=== PATIENT | female | born 1950 | race Caucasian/White ===

== ENCOUNTER → 2016-12-23 | Outpatient (CLI) | payer MEDICARE, BC ==
[~2016-12-23] MED LIST: ACETAMINOPHEN PO; ADVAIR 2501 DISK W/D PO; ADVAIR 500-501 EACH IH; ADVAIR 5001 DISK W/2 INH; ALBUTEROL0.83 MG/ML IH; ALBUTEROL17 GM INH; ALPRAZOLAM PO; AMOXIL500 M2 PO; BACTRIM DS TABL1 TAB PO; CEFTIN PO; CHANTIX; CLARITIN10 M3 PO; CLARITIN10 MG PO; DOCUSATE SODIU100 MG PO; GABAPENTIN400 M2 PO; HYDROCODON-ACE1 EAC1 PO; INCRUSE ELLI62.5 MCG INH; LEVAQUIN PO; LEVAQUIN750 MG PO; LORTAB 7.5-3251 EACH PO; MOOD STABILIZER; MUCINEX DM1 TAB.SR . PO; NEURONTIN PO; OMNICEF300 MG PO; PREDNISONE PO; PREDNISONE10 MG PO; PROTONIX PO; RITE-AID PHARMACY; SPIRIVA18 MCG INH; SPIRIVA18 MCG PO; TESSALON200 MG PO; TUSSIONEX PENN473 ML PO; TYLENOL325 M1 PO; VENTOLIN5 MG/ML INH; VIBRAMYCIN100 M1 PO; WELLBUTRIN PO; ZITHROMAX PO; ZITHROMAX500 MG PO; ZYRTEC10 M1 PO
--- NOTE | ~2016-12-23 | CT57 ---
[facility] A Service of [facility] & [facility] RADIOLOGY TEXT RESULTS PATIENT: TIFFANY ABREU LOCATION: [facility] : 46 UNIT #: [id number] AGE: [address]: Marlen Ocasio APRN SEX: F ORDER DR: [id number] [facility] [address] [place], [place] [address] [id number] O MR#: [id number] Acc #: [id number] NAME: TIFFANY ABREU : 1950 SEX: F STUDY DATE/TIME: 12/23/2016 14:00 UNIT: [facility] ROOM: STUDY DESCRIPTION: CT Chest Wo Cont Attending Physician: Marlen Ocasio A.P.R.N. Referring Physician: Marlen Ocasio A.P.R.N. Ordering Physician: Marlen Ocasio A.P.R.N. Primary Care Physician: Dulce Maria Gramajo M.D. MEDICAL IMAGING REPORT This report is preliminary unless electronic signature is present EXAM CT chest INDICATION Pneumonia. Cough and shortness of air for 3-[address] of the thorax without contrast. Coronal and sagittal reconstructions were obtained. This CT exam was performed with one or more of the following radiation dose reduction techniques: automatic exposure control, adjustment of mA and/or kV according to patient size, and iterative reconstruction. COMPARISON CTA of the chest dated 09/18/2016 FINDINGS There is moderate emphysema. Mild bronchial wall thickening is noted in the lower portions of both lungs. This can be seen in the setting of acute or chronic bronchitis. There is some mild bronchiectasis. Linear areas of atelectasis are noted in the right lower lobe and the left lower lobe. These are slightly improved from the prior study. There is minimal interstitial thickening in the anterior aspect of the right upper lobe and in the posterior aspect of the left upper lobe. This could represent an early inflammatory/infectious process. There are a few prominent mediastinal lymph nodes, however, these are subcentimeter in short axis. An index precarinal lymph node measures 0.8 cm, compared to 0.9 cm previously. There is a right suprahilar node measuring 1.0 cm compared to 1.2 cm previously. No pericardial or pleural effusion. Thoracic aorta is normal in caliber. [facility] A Service of [facility] RADIOLOGY TEXT RESULTS PATIENT: TIFFANY ABREU LOCATION: [facility] : 46 UNIT #: [id number] AGE: [address]: Marlen Ocasio TELEVISION INSTALLER SEX: F ORDER DR: Limited images of the upper abdomen were obtained. There is no acute findings. IMPRESSION 1. Moderate emphysema. 2. Mild bronchial wall thickening. This can be seen in the setting of acute or chronic bronchitis. 3. Areas of very mild interstitial thickening and micronodularity in the right upper lobe and left upper lobe. This likely reflects an early inflammatory/infectious process (i.e., pneumonia). 4. Mild bronchial wall thickening can be seen in the setting of acute or chronic bronchitis. 5. Incidental note of a pig bronchus in the right upper lobe. 6. Small mediastinal or hilar lymph nodes are either stable or decreased in size compared to the prior study. Dictated by... Tutu Patel M.D. THIS IS AN ELECTRONICALLY VERIFIED REPORT Tutu Patel M.D. at 12/23/2016 9:45 PM Mae TD: 12/23/2016 14:45 JOB #: [id number] MEDICAL IMAGING REPORT Page 1 of 1 COPY
== END | disposition home or self-care (01) ==
LOC: CCAT 13:23
DX: J18.9 Pneumonia, unspecified organism (principal); J43.9 Emphysema, unspecified; J98.09 Other diseases of bronchus, not elsewhere classified; R91.8 Other nonspecific abnormal finding of lung field
CPT/HCPCS: 71250

== ENCOUNTER → 2017-02-23 | Outpatient (CLI) | payer MEDICARE, BC ==
--- NOTE | ~2017-02-23 | MY11 ---
[facility] A Service of [facility] RADIOLOGY TEXT RESULTS PATIENT: TIFFANY ABREU LOCATION: [facility] : 46 UNIT #: [id number] AGE: [address]: NICK CEE MD SEX: F ORDER DR: [id number] [address] [address] [id number] O MR#: [id number] Acc #: [id number] NAME: TIFFANY ABREU : 1950 SEX: F STUDY DATE/TIME: 02/23/2017 12:08 UNIT: [facility] ROOM: STUDY DESCRIPTION: MY Mammogram Screening Dig Mega Attending Physician: Nick Cee M.D. Referring Physician: Nick Cee M.D. Ordering Physician: Nick Cee M.D. Primary Care Physician: Nick Cee M.D. MEDICAL IMAGING REPORT This report is preliminary unless electronic signature is present. EXAM Digital screening mammogram 02/23/2017 HISTORY 66-year-old woman, positive family history, mother age 75 and 2 maternal cousins. Annual screening. COMPARISON STUDIES Mammograms from [facility] 07/15/2012, 07/28/2013. FINDINGS Digital imaging of each breast was completed utilizing a two-view examination of each breast in craniocaudal and mediolateral-oblique projections. Review and interpretation of digital mammograms include a second review in conjunction with FDA-approved CAD device. There is a normal parenchymal presentation bilaterally consistent with the patient's age. There are no breast masses imaged and no parenchymal asymmetry is visualized. There are no suspicious microcalcifications and I see no focal architectural disturbance. Breast parenchymal is fatty replaced. IMPRESSION Negative screening digital mammogram. One-year followup recommended. Patients over the age of 40 are entered into a reminder system with target due date for the next mammogram. A result letter will also be sent to the patient. BIRADS: 1 Negative [facility] A Service of [facility] RADIOLOGY TEXT RESULTS PATIENT: TIFFANY ABREU LOCATION: [facility] : 46 UNIT #: [id number] AGE: [address]: NICK CEE MD SEX: F ORDER DR: Dictated by... Maurizio Arevalo M.D. THIS IS AN ELECTRONICALLY VERIFIED REPORT Maurizio Arevalo M.D. at 02/24/2017 7:10 AM JBB/alok TD: 02/23/2017 20:34 JOB #: [id number] MEDICAL IMAGING REPORT Page 1 of 1
== END | disposition home or self-care (01) ==
LOC: SMAM 02-15 11:00
DX: Z12.31 Encounter for screening mammogram for malignant neoplasm of breast (principal); Z80.3 Family history of malignant neoplasm of breast
CPT/HCPCS: G0202